=== PATIENT | female | born 2000 | race Caucasian/White ===

== ENCOUNTER 2024-06-03 12:56 | Emergency (ER) | payer OTHER, SELFPAY ==
[2024-06-03 13:01] VITALS: BP 130/92
[2024-06-03 13:20] LABS: % Basophils 0.3 % (0-2); % Eosinophils 3.7 % (0-6); % Immature Granulocytes 0.3 % (0-0.5); % Lymphocytes 28.8 % (20.5-51.1); % Neutrophils 61.9 % (42.2-75.2); Absolute Eosinophils 0.3 10^3/uL (0-0.7); Absolute Monocytes 0.4 10^3/uL (0.1-0.6); Absolute Neutrophils 4.4 10^3/uL (1.4-6.5); Hemoglobin 14.2 g/dL (12.0-16.0); Mean Corp Hgb Conc. 35.5 g/dL (33.0-37.0); Mean Corpuscular Hgb 29.4 pg (27.0-31.0); Mean Corpuscular Volume 82.8 fL (81.0-99.0); Mean Platelet Volume 8.9 fL (7.4-10.4); Nucleated Red Blood Cells % 0 %; Platelet Count 328 10^3/uL (130-400); Red Blood Cell Count 4.83 10^6/uL (4.20-5.40); Red Cell Dist. Width 12.5 % (11.5-14.5)
[2024-06-03 13:33] LABS: ALT (SGPT) 58 U/L (0-35); AST (SGOT) 37 U/L (14-36); Albumin 4.9 g/dl (3.5-5.0); Alkaline Phosphatase 63 U/L (38-126); Blood Urea Nitrogen 15 mg/dl (7-17); Calcium 9.5 mg/dl (8.4-10.2); Carbon Dioxide 24 mmol/L (22-30); Chloride 106 mmol/L (98-107); Glucose 94 mg/dl (70-99); Potassium 4.2 mmol/L (3.5-5.1); Sodium 139 mmol/L (135-145); Total Bilirubin 0.6 mg/dl (0.2-1.3); Total Protein 7.3 g/dl (6.3-8.2); eGFR > 60.00
--- NOTE | 2024-06-03 15:14 | ED.GENMED ---
History of Present Illness
General
Chief Complaint: Breathing Problem
Source: patient
Exam Limitations: none
Time Seen by Provider: 06/03/24 15:04
Nursing documentation reviewed up to this point in time: agreed with
History of Present Illness
History of Present Illness:
23-year-old female with a past medical history of POTS, asthma who presents to the emergency room for evaluation of coughing and shortness of breath. Patient reports that she has been dealing with worsening general asthma symptoms for the past year
although she has been struggling with recurrent cough since she was at least 16 years old. She says that she is prescribed an albuterol rescue inhaler only and that for the past month at least she has been using it on a daily basis and many times
multiple times daily. 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 Aside from coughing and shortness of
breath she also reports tightness in her chest with the symptoms. She denies any other complaints today. She says that she was seen by her primary doctor recently and was sent for pulmonology evaluation but with her symptoms generally worsening in
fact that she has not yet been able to schedule an expeditious pulmonology appointment she came to the emergency room to be evaluated. Of note she admits to regular vaping and marijuana smoking.
Review of Systems
Review of Systems
All Other Systems: ROS reviewed and negative except as documented in HPI and ROS
Constitutional: Denies fever or chills
Respiratory: Reports cough and trouble breathing
Cardiac: Denies chest pain or palpitations
ABD/GI: Denies abdominal pain, nausea or vomiting
Musculoskeletal: Denies edema
Neurological: Denies headache
Phy Exam
Physical Exam
Physical Exam:
General: Awake, alert, oriented x3; no acute distress
Head: Normocephalic, atraumatic
Eyes: Conjunctiva normal
Throat: Airway intact, handling secretions
Neck: Trachea midline, supple without meningismus
Lungs: Clear to auscultation bilaterally, no wheezing, rales, rhonchi; occasional cough
Heart: Regular rate and rhythm, no murmurs, gallops, or rubs
Neuro: No gross deficit
Skin: no rash
Extremities: No edema in extremities, equal pulses in all extremities
Scores
Heart Failure Risk
Heart Failure Risk Score: Not Applicable
Heart Score for Chest Pain Patients
STEMI patient?: Not applicable
Withdrawal Assessment of Alcohol
Withdrawal Assessment Completed?: Not applicable
Course
Orders/Labs/Results
Orders:
Orders
06/03/24 13:07
CMP [Comprehensive Metabolic Panel] Urgent
Complete Blood Count/With Diff Urgent
06/03/24 15:04
CR Chest - 2 Views Urgent
Comment:
Reason For Exam: persistent cough, sob
06/03/24 15:05
Electrocardiogram (*1) Urgent
Reason for Study: Shortness of Breath
EKG- Treatment ONCE
Abnormal Lab Results
06/03/24
13:07
AST 37 H U/L
(14-36)
ALT 58 H U/L
(0-35)
06/03/24 13:07
06/03/24 13:07
Vital Signs
Initial and Last Documented VS:
Initial Vital Signs
Temp Pulse Resp BP Pulse Ox
36.8 C 76 18 130/92 96
06/03/24 13:01 06/03/24 13:01 06/03/24 13:01 06/03/24 13:01 06/03/24 13:01
Last Documented Vital Signs
Temp Pulse Resp BP Pulse Ox
36.8 C 58 19 130/92 96
06/03/24 13:01 06/03/24 15:25 06/03/24 15:25 06/03/24 13:01 06/03/24 15:25
MDM/Problems Addressed
Differential Diagnosis Includes:
Asthma
MDM/Problems Addressed:
23-year-old female presents with worsening cough and shortness of breath, chest tightness triggered by lying flat at night, pollen/dust, smoke. She has rescue albuterol inhaler which she has been using more frequently over the past month. She is
supposed to schedule pulmonology follow-up but feels her symptoms are worsening and so she came to the emergency room. Vitals are normal. Exam as above. Symptoms sound consistent with asthma/chronic bronchitis; she does admit to actively
smoking/vaping. Screening labs in triage without any clinically significant abnormalities�only marginally elevated LFTs for which she can follow-up with her primary doctor. Sent for chest x-ray. Can likely initiate treatment with inhaled
corticosteroid for maintenance therapy; I did encourage cessation of smoking/vaping and encouraged her to ensure that she does schedule follow-up with pulmonology as instructed by primary.
Chest x-ray reviewed by me shows no acute pathology. Will start on maintenance therapy for asthma and refer to pulmonology. Stable for discharge. Patient comfortable with this. All questions answered.
*Radiology
Radiology exam reviewed: preliminary read by ED provider
*Pulse Oximetry
Patient hypoxic: no
*EKG
Interpreted by ED Provider?: Yes
Heart Rate: 58
Rate: bradycardiac
Rhythm: sinus
Zeigler: normal axis
Interval: normal interval
QRS Pattern: normal QRS
Ischemia: non-specific ST changes
*Critical Care Note
Total Time (30-74mins, 75-104mins- exclusive of procedures): Not Applicable
Data Reviewed
Source: patient
ED Attending Note
-
Portions of this chart may have been created with voice recognition software.� Occasional wrong word or��sound alike� substitutions may have occurred due to the inherent limitations of voice recognition software.
Discharge Plan
Departure
Patient Disposition: Home (Routine Discharge)
Date of Disposition: 06/03/24
Time of Disposition: 16:16
Patient with high blood pressure during this ER visit?: No
Discharge Problem:
Asthma
Instructions: Asthma, Adult (DC)
Prescriptions:
New
fluticasone propion-salmeterol [Advair HFA] 45-21 mcg/actuation HFA aerosol inhaler
2 puff inhalation BID Qty: 12 0RF
Referrals:
Deion Vidales MD [Active] - Call in 1-3 days for appt (Pulmonology--you should call to schedule follow-up with pulmonology as instructed by your primary; you can either follow-up with grassroots organizer referred by your primary or you can
follow-up with our grassroots organizer at the number provided)
Activity Restrictions/Additional Instructions:
Thank you for visiting the Emergency Department at [facility].
1. Please schedule a follow up appointment as directed. Call first thing tomorrow morning to make an appointment.
2. If indicated, please take your medications as instructed and indicated on discharge paperwork.
3. If any of your symptoms do not improve, or persist, or become more severe within 6-12 hours, please return to the emergency department for further care.
4. Please return to the emergency department if you develop a headache, neck pain/stiffness, fever greater than 100.4F, chest pain, shortness of breath, persistent nausea, vomiting, slurred speech, difficulty walking, numbness/tingling, weakness,
signs of infection or any other symptoms that are worrisome to you.
Please call [phone] if you have any questions.
Interventions
Interventions:
*Risk Screen - Suicide Last Done: 06/03/24 13:01
*General Assessment Last Done: 06/03/24 15:26
*Neglect/Abuse Screening Last Done: 06/03/24 13:01
ED- Fall Risk Assessment Last Done: 06/03/24 15:26
*ED COVID-19 Vaccine History Last Done: 06/03/24 13:01
ED- Cardiac Assessment Last Done: 06/03/24 15:26
ED- Pulmonary Assessment Last Done: 06/03/24 15:26
Discharge Date and Time
Print Language: [place]
[2024-06-03 16:45] VITALS: BP 130/85
== END 2024-06-03 16:46 | disposition home or self-care (01) ==
LOC: EMR 12:56
PROVIDERS: Emergency Medicine; EMERGENCY PHYSICIAN Emergency Medicine; FAMILY PHYSICIAN Family Medicine
DX: J45.909 Unspecified asthma, uncomplicated (principal); F17.290 Nicotine dependence, other tobacco product, uncomplicated
CPT/HCPCS: 99285; 71046; 80053; 85025; 93005